=== PATIENT | male | born 1985 | race Caucasian/White ===

== ENCOUNTER 2017-08-09 05:20 | Emergency (ER) | payer MEDICAID, OTHER | END 2017-08-09 06:49 | disposition home or self-care (01) | LOC: M ED 05:20 | DX: G47.00 Insomnia, unspecified (principal); F41.9 Anxiety disorder, unspecified; F19.182 Other psychoactive substance abuse with psychoactive substance-induced sleep disorder; F17.210 Nicotine dependence, cigarettes, uncomplicated; Z79.890 Hormone replacement therapy; Z88.5 Allergy status to narcotic agent | CPT/HCPCS: 99283 ==